=== PATIENT | female | born 1975 | race Caucasian/White ===

== ENCOUNTER 2020-08-19 04:39 | Day surgery (SDC) | payer BC ==
[2020-08-15 12:11] VITALS: BMI 30.1
[2020-08-19] MEDS ORDERED: ACETAMINOPHEN 325 MG TABLET (FP) PO PRN (07:07)
[2020-08-19] MEDS ORDERED: IBUPROFEN 400 MG TABLET (FP) PO PRN (07:07)
[2020-08-19] MEDS ORDERED: SCOPOLAMINE HYDROBROMIDE 1 PATCH PATCH.TD72 ONE (07:26)
[2020-08-19] MEDS ORDERED: PROPOFOL 20 ML ONE ×2 (07:38→07:59)
[2020-08-19] MEDS ORDERED: ONDANSETRON 4 MG/2 ML VIAL IVPUSH PRN (07:41)
[2020-08-19] MEDS ORDERED: oxyCODONE HCL 5 MG TABLET PO PRN (07:41)
[2020-08-19] MEDS ORDERED: PROMETHAZINE HCL 25 MG/1 ML VIAL IVPB PRN (07:41)
[2020-08-19] MEDS ORDERED: LACTATED RINGERS SOLUTION 1,000 ML IV SCH (07:45)
[2020-08-19] MEDS ORDERED: ceFAZolin SODIUM 1 GM VIAL IVPB ONE (07:58)
[2020-08-19] MEDS ORDERED: fentaNYL CITRATE 250 MCG/5 ML VIAL ONE (08:00)
[2020-08-19] MEDS ORDERED: MIDAZOLAM HCL 2 MG/2 ML SINGLE DOSE VIAL ONE (08:00)
[2020-08-19] MEDS ORDERED: oxyCODONE HCL 5 MG TABLET ONE (10:46)
[2020-08-19 12:21] VITALS: BP 126/76; PULSE 67; TEMP 97.7
== END 2020-08-19 12:27 | disposition home or self-care (01) ==
LOC: JASU-SURG 04:39
PROVIDERS: ATTEND Obstetrics & Gynecology
PROC: 0UDB7ZX Extraction of Endometrium, Via Natural or Artificial Opening, Diagnostic (ICD-10-PCS; 2020-08-19)
PROC: 0UJD8ZZ Inspection of Uterus and Cervix, Via Natural or Artificial Opening Endoscopic (ICD-10-PCS; 2020-08-19)
PROC: 0UB98ZZ Excision of Uterus, Via Natural or Artificial Opening Endoscopic (ICD-10-PCS; principal; 2020-08-19 10:00)
PROC: 0UB97ZX Excision of Uterus, Via Natural or Artificial Opening, Diagnostic (ICD-10-PCS; 2020-08-19 10:00)
DX: N84.0 Polyp of corpus uteri (principal); D25.0 Submucous leiomyoma of uterus
CPT/HCPCS: 88305-TC; 94760